=== PATIENT | female | born 1965 | race Caucasian/White ===

== ENCOUNTER 2018-11-03 20:43 | Emergency (ER) | payer BC ==
[~2018-11-03] VITALS: Ht 167.6 cm; Wt 90.7 kg
[2018-11-03] MEDS ORDERED: MOBIC15 MG (20:53)
[2018-11-03] MEDS ORDERED: KLONOPIN0.5 MG (20:53)
[2018-11-03] MEDS ORDERED: WELLBUTRIN SR150 MG (20:54)
[2018-11-03] MEDS ORDERED: VENLAFAXIN37.5 MG/1 (20:54)
[2018-11-03 23:15] VITALS: BP 168/77
== END 2018-11-03 23:16 | disposition home or self-care (01) ==
LOC: M.ERS 20:43
DX: S93.492A Sprain of other ligament of left ankle, initial encounter (principal); F32.9 Major depressive disorder, single episode, unspecified; Z88.0 Allergy status to penicillin; W17.2XXA Fall into hole, initial encounter; Y93.89 Activity, other specified; Y92.89 Other specified places as the place of occurrence of the external cause; Y99.8 Other external cause status